=== PATIENT | male | born 1975 | race Hispanic/Latino ===

== ENCOUNTER 2016-09-21 13:15 | Emergency (ER) | payer OTHER ==
[~2016-09-21] VITALS: Ht 162.6 cm; Wt 72.1 kg
[~2016-09-21 13:15] MED LIST: AEROECLIPSE1 EACH MC; ALBUTEROL SULF8.5 GM IH; AMOXICILLIN500 M1 PO; AMOXICILLIN500 MG PO; CHERATUSSIN AC473 ML PO; CIPRO500 MG PO; FLAGYL500 MG PO; FLEXERIL10 MG PO; HYDROCODON-ACE1 EAC7 PO; IRON160 M1 PO; MELATIN3 MG PO; MIRALAX17 GM PO; MOTRIN600 MG PO; MOTRIN800 MG PO; NAPROSYN500 MG PO; NAPROXEN500 MG PO; PERCOCET 5/31 TABLET PO; PREDNISONE10 M1 PO; PREDNISONE20 MG PO; PREDNISONE50 MG PO; PRILOSEC20 MG PO; PROCTOCORT30 M1 PR; PROVENTIL,2.5 MG/3 M IH; PSEUDOEPHEDRINE30 MG PO; SEREVENT DISKU50 MCG IH; TESSALON PERLE100 MG PO; TRAMADOL HCL50 MG PO; TYLENOL WITH C1 EACH PO; ULTRAM50 MG PO; VALIUM5 MG PO; VENTOLIN HFA18 GM IH; ZANTAC300 MG PO; ZITHROMAX Z-PA250 MG PO; ZOFRAN4 MG PO
[2016-09-21] MEDS ORDERED: VENTOLIN HFA18 GM IH (15:01)
[2016-09-21] MEDS ORDERED: PREDNISONE20 MG PO (15:01)
[2016-09-21] MEDS ORDERED: PROVENTIL,2.5 MG/3 M IH (15:01)
[2016-09-21 15:56] VITALS: BP 128/94
== END 2016-09-21 15:59 | disposition home or self-care (01) ==
LOC: EME 13:15
DX: J45.909 Unspecified asthma, uncomplicated (principal); F17.200 Nicotine dependence, unspecified, uncomplicated
CPT/HCPCS: 71020; 94640; 99281; 99284; J7512

== ENCOUNTER 2017-01-15 12:33 | Emergency (ER) | payer OTHER ==
[~2017-01-15] VITALS: Ht 162.6 cm; Wt 72.0 kg
[2017-01-15 15:50] LABS: CHLORIDE 104 mEq/L (99-109); POTASSIUM 4.3 mEq/L (3.7-5.4); SODIUM 138 mEq/L (136-147)
[2017-01-15 15:53] LABS: GLUCOSE 94 mg/dL (70-99)
[2017-01-15 15:54] LABS: ANION GAP 13 MEQ/L (2-14); TOTAL BILIRUBIN 0.5 mg/dL (0.0-1.0)
[2017-01-15 15:56] LABS: ALKALINE PHOSPHATASE 51 IU/L (3-129); GFR ESTIMATE (CALCULATED) > 59 mL/min/
[2017-01-15 15:57] LABS: UREA NITROGEN (BUN) 18 mg/dL (9-23)
[2017-01-15 15:59] LABS: CREATINE KINASE 76 IU/L (1-294)
[2017-01-15] MEDS ORDERED: TRAMADOL HCL50 MG PO (18:26)
[2017-01-15 18:44] VITALS: BP 123/83
== END 2017-01-15 18:44 | disposition home or self-care (01) ==
LOC: EME 12:33
PROVIDERS: Emergency Medicine
DX: S76.211A Strain of adductor muscle, fascia and tendon of right thigh, initial encounter (principal); S76.212A Strain of adductor muscle, fascia and tendon of left thigh, initial encounter; S39.011A Strain of muscle, fascia and tendon of abdomen, initial encounter; X58.XXXA Exposure to other specified factors, initial encounter; Z87.891 Personal history of nicotine dependence
CPT/HCPCS: 80053; 82550; 83605; 93970; 99281; 99284; J1885

== ENCOUNTER 2017-01-19 13:06 | Emergency (ER) | payer OTHER ==
[~2017-01-19] VITALS: Ht 162.6 cm; Wt 73.2 kg
[2017-01-19 13:57] LABS: ADD MIUA? YES; BILIRUBIN NEGATIVE; BLOOD NEGATIVE; COLOR YELLOW ((YELLOW)); GLUCOSE (STRIP) NEGATIVE; KETONES NEGATIVE; LEUKOCYTES NEGATIVE; NITRITE NEGATIVE; PROTEIN (STRIP) NEGATIVE; SPECIFIC GRAVITY 1.021 (1.000-1.030); UROBILINOGEN 0.2 MG/DL (0.2-1.0)
[2017-01-19 13:59] LABS: BACTERIA NONE SEEN /HPF; EPITHELIAL CELLS NONE SEEN /HPF; MUCUS NONE SEEN /LPF; RED BLOOD CELLS 0-5 /HPF (0-5); WHITE BLOOD CELLS 0-5 /HPF (0-5)
[2017-01-19 14:35] LABS: EOSINOPHIL (%) 3.9 % (0-5); EOSINOPHIL COUNT 0.3 K/uL (0-0.3); HEMATOCRIT 43.1 % (38.0-50.0); IMMATURE GRANULOCYTE (%) 0.4 % (0.0-0.7); LYMPHOCYTE COUNT 2.2 K/uL (1.0-2.8); MCH 28.4 PG (29.0-34.0); MCHC 33.6 G/DL (30.0-36.0); MCV 84.5 FL (86-99); MEAN PLAT.VOLUME 9.8 uM^3 (9.0-12.4); MONOCYTE (%) 10.8 % (3-12); MONOCYTE COUNT 0.9 K/uL (0-0.8); NEUTROPHIL (%) 58.2 % (45-76); PLATELET COUNT 251 K/uL (156-360); RBC DIS.WIDTH-CV 12.5 % (11.8-14.6); RBC DIS.WIDTH-SD 38.6 % (39-53); WHITE BLOOD COUNT 8.5 K/uL (4.1-10.2)
[2017-01-19 14:49] LABS: CHLORIDE 106 mEq/L (99-109); POTASSIUM 4.1 mEq/L (3.7-5.4); SODIUM 140 mEq/L (136-147)
[2017-01-19 14:51] LABS: GLUCOSE 84 mg/dL (70-99)
[2017-01-19 14:52] LABS: ANION GAP 13 MEQ/L (2-14)
[2017-01-19 14:53] LABS: TOTAL BILIRUBIN 0.6 mg/dL (0.0-1.0)
[2017-01-19 14:54] LABS: ALKALINE PHOSPHATASE 48 IU/L (3-129)
[2017-01-19 14:55] LABS: GFR ESTIMATE (CALCULATED) > 59 mL/min/
[2017-01-19 14:56] LABS: UREA NITROGEN (BUN) 18 mg/dL (9-23)
[2017-01-19 14:58] LABS: LIPASE 47 U/L (1.0-51.0)
[2017-01-19 15:33] LABS: C-REACTIVE PROTEIN < 1.0 MG/L (0-10)
[2017-01-19 15:50] LABS: ERTH.SED.RATE 11 MM/HR (0-15)
[2017-01-19 16:10] VITALS: BP 125/86
== END 2017-01-19 16:11 | disposition home or self-care (01) ==
LOC: EME 13:06
PROVIDERS: Physician Assistant
DX: R59.1 Generalized enlarged lymph nodes (principal); Z88.6 Allergy status to analgesic agent; Z87.891 Personal history of nicotine dependence
CPT/HCPCS: 71260; 74177; 80053; 81003; 83690; 85025; 85651; 86140; 99281; 99284; J7030

== ENCOUNTER 2017-01-22 02:54 | Emergency (ER) | payer OTHER ==
[~2017-01-22] VITALS: Ht 162.6 cm; Wt 73.2 kg
[2017-01-22] MEDS ORDERED: ULTRAM50 MG PO (03:46)
[2017-01-22] MEDS ORDERED: PROVENTIL HFA6.7 GM IH (03:46)
[2017-01-22 04:38] VITALS: BP 128/93
== END 2017-01-22 04:38 | disposition home or self-care (01) ==
LOC: EME 02:54
DX: R59.1 Generalized enlarged lymph nodes (principal); R10.30 Lower abdominal pain, unspecified; J45.909 Unspecified asthma, uncomplicated; Z87.891 Personal history of nicotine dependence
CPT/HCPCS: 99281; 99283